=== PATIENT | female | born 1945 | race Caucasian/White ===

== ENCOUNTER 2017-03-28 10:58 | Emergency (ER) | payer OTHER ==
[~2017-03-28] VITALS: Ht 149.9 cm; Wt 67.6 kg
[2017-03-28 11:48] LABS: HEMATOCRIT 41.8 % (37.0-47.0); HEMOGLOBIN 13.9 gm/dL (12.0-15.0); MCH 29.1 pg (26.0-34.0); MCHC 33.2 g/dL (28.0-37.0); MCV 87.7 fL (80.0-100.0); RBC 4.77 mil/uL (4.20-5.00); RDW 14.6 % (10.5-14.5); WBC 3.9 thou/uL (4.0-11.0)
[2017-03-28 11:56] LABS: CALCIUM 8.9 mg/dL (8.5-10.1); CREATININE 0.9 mg/dL (0.6-1.0); POTASSIUM 3.3 mmol/L (3.5-5.1)
[2017-03-28 12:02] LABS: APTT 37.4 Seconds (24.5-32.8); INR 1.7; PROTIME 17.4 Seconds (9.3-11.4)
[2017-03-28] MEDS ORDERED: TENORMIN50 MG PO (12:28)
[2017-03-28] MEDS ORDERED: VITAMINC500 PO (12:28)
[2017-03-28] MEDS ORDERED: VENTOLIN HFA 1818 GM INH (12:28)
[2017-03-28] MEDS ORDERED: APAP500 PO (12:28)
[2017-03-28] MEDS ORDERED: MUCINEX DM ER1 EAC1 PO (12:30)
[2017-03-28] MEDS ORDERED: VASOTEC10 MG PO (12:30)
[2017-03-28] MEDS ORDERED: BENADRYL25 MG PO (12:30)
[2017-03-28] MEDS ORDERED: PREMARIN1.25 MG PO (12:30)
[2017-03-28] MEDS ORDERED: BREO ELLIPTA 21 EACH IH (12:31)
[2017-03-28] MEDS ORDERED: CLARITIN10 MG PO (12:31)
[2017-03-28] MEDS ORDERED: FOLIC ACID 40400 MCG PO (12:31)
[2017-03-28] MEDS ORDERED: METROGEL55 GM TP (12:32)
[2017-03-28] MEDS ORDERED: THERAGRAN-M PR1 EAC1 PO (12:33)
[2017-03-28] MEDS ORDERED: MINOCIN100 MG PO (12:33)
[2017-03-28] MEDS ORDERED: OMEGA-31000 M1 PO (12:34)
[2017-03-28] MEDS ORDERED: MAXZIDE-25 MG1 EACH PO (12:34)
[2017-03-28] MEDS ORDERED: OMEPRAZOLE20 M1 PO (12:34)
[2017-03-28] MEDS ORDERED: VITAMIN E100 UNI2 PO (12:35)
[2017-03-28] MEDS ORDERED: JANTOVEN2 MG PO (12:35)
[2017-03-28] MEDS ORDERED: PREDNISONE 20 M20 MG PO (13:25)
[2017-03-28] MEDS ORDERED: TRAMADOL 50 MG50 MG PO (13:25)
[2017-03-28 14:07] VITALS: BP 137/59
== END 2017-03-28 14:11 | disposition home or self-care (01) ==
LOC: ER 10:58
PROVIDERS: Emergency Medicine
DX: R51 Headache (principal); M06.9 Rheumatoid arthritis, unspecified; I10 Essential (primary) hypertension; J45.909 Unspecified asthma, uncomplicated; F10.99 Alcohol use, unspecified with unspecified alcohol-induced disorder; Z87.442 Personal history of urinary calculi; Z90.710 Acquired absence of both cervix and uterus

== ENCOUNTER → 2019-12-19 | Outpatient (CLI) | payer OTHER ==
[~2019-12-19] MED LIST: APAP500 PO; BENADRYL25 MG PO; BREO ELLIPTA 21 EACH IH; CLARITIN10 MG PO; FOLIC ACID 40400 MCG PO; JANTOVEN2 MG PO; MAXZIDE-25 MG1 EACH PO; METROGEL55 GM TP; MINOCIN100 MG PO; MUCINEX DM ER1 EAC1 PO; OMEGA-31000 M1 PO; OMEPRAZOLE20 M1 PO; PREDNISONE 20 M20 MG PO; PREMARIN1.25 MG PO; TENORMIN50 MG PO; THERAGRAN-M PR1 EAC1 PO; TRAMADOL 50 MG50 MG PO; VASOTEC10 MG PO; VENTOLIN HFA 1818 GM INH; VITAMIN E100 UNI2 PO; VITAMINC500 PO
== END ==
LOC: SJCVCIMAG 08:47
DX: R94.31 Abnormal electrocardiogram [ECG] [EKG] (principal); I08.8 Other rheumatic multiple valve diseases; I48.21 Permanent atrial fibrillation; I10 Essential (primary) hypertension; E78.5 Hyperlipidemia, unspecified; J45.40 Moderate persistent asthma, uncomplicated; C83.31 Diffuse large B-cell lymphoma, lymph nodes of head, face, and neck; Z86.73 Personal history of transient ischemic attack (TIA), and cerebral infarction without residual deficits; Z79.01 Long term (current) use of anticoagulants; Z72.89 Other problems related to lifestyle; Z79.899 Other long term (current) drug therapy

== ENCOUNTER → 2020-06-18 | Outpatient (CLI) | payer OTHER | LOC: SJCVC 13:21 | PROVIDERS: ATTEND Internal Medicine | DX: I48.21 Permanent atrial fibrillation (principal); R94.31 Abnormal electrocardiogram [ECG] [EKG]; I10 Essential (primary) hypertension; E78.5 Hyperlipidemia, unspecified; C83.31 Diffuse large B-cell lymphoma, lymph nodes of head, face, and neck; Z79.01 Long term (current) use of anticoagulants; Z79.899 Other long term (current) drug therapy ==

== ENCOUNTER → 2020-06-19 | Outpatient (CLI) | payer OTHER | LOC: SJCVCIMAG 12:41 | PROVIDERS: ATTEND Internal Medicine Cardiovascular Disease | DX: I08.3 Combined rheumatic disorders of mitral, aortic and tricuspid valves (principal); I27.20 Pulmonary hypertension, unspecified; I11.9 Hypertensive heart disease without heart failure; I48.21 Permanent atrial fibrillation; C83.31 Diffuse large B-cell lymphoma, lymph nodes of head, face, and neck; E78.5 Hyperlipidemia, unspecified ==

== ENCOUNTER 2020-10-02 12:03 | Emergency (ER) | payer OTHER ==
[~2020-10-02] VITALS: Ht 149.9 cm; Wt 50.8 kg
[2020-10-02 12:49] LABS: ABSOLUTE NEUTROPHILS 4.1 thou/uL (1.4-8.2); BASOPHILS 0.7 % (0.0-2.0); EOSINOPHILS 0.2 % (0.0-3.0); HEMATOCRIT 43.6 % (37.0-47.0); HEMOGLOBIN 14.5 gm/dL (12.0-15.0); LYMPHOCYTES 6.9 % (24.0-44.0); MCH 26.4 pg (26.0-34.0); MCHC 33.3 g/dL (28.0-37.0); MCV 79.4 fL (80.0-100.0); MONOCYTES 6.3 % (1.0-8.0); PLATELET COUNT 185 thou/uL (150-400); POLYS 85.9 % (36.0-66.0); RBC 5.49 mil/uL (4.20-5.00); RDW 19.4 % (10.5-14.5); WBC 4.8 thou/uL (4.0-11.0)
[2020-10-02 13:00] LABS: CALCIUM 9.5 mg/dL (8.5-10.1); POTASSIUM 3.9 mmol/L (3.5-5.1)
[2020-10-02 13:08] LABS: ALBUMIN 2.7 g/dL (3.4-5.0); TOTAL BILIRUBIN 0.6 mg/dL (0.2-1.0); TOTAL PROTEIN 6.7 g/dL (6.4-8.2)
[2020-10-02 14:15] LABS: ANISOCYTOSIS 1+
--- NOTE | 2020-10-02 14:24 | EKG ---
[address] [address] ELECTROCARDIOGRAM REPORT Name: VIVIANA COON [id number] Admission: 10/02/20 Attend Phys: Discharge: Date of : 41 Report #: [id number] [facility] ED Test Date: 2020-10-02 Test Time: 13:17:08 Pat Name: VIVIANA COON Department: Room: Gender: F Plush Weaver: susan : 1945 Requested By: Malik Spicer Order Number: [id number] MD: Nathen Rico Measurements Intervals [place] Rate: 94 P: [place]: QRS: 84 QRSD: 78 T: 22 QT: 351 QTc: 439 Interpretive Statements Atrial fibrillation Ventricular premature complex Borderline right axis deviation No previous ECG available for comparison Electronically Signed On 10-02-2020 14:23:53 CARTRIDGE FEEDER by Nathen Rico [email or web address] <ELECTRONICALLY SIGNED> By: Nathen Rico MD, [facility] 10/02/20 1423 1317 1317 Nathen Rico MD, FACC /EPI
[2020-10-02 14:37] LABS: URINE BILIRUBIN NEGATIVE (Negative); URINE BLOOD NEGATIVE (Negative); URINE CLARITY CLEAR; URINE COLOR YELLOW; URINE GLUCOSE-RANDOM* NEGATIVE (Negative); URINE KETONES TRACE (Negative); URINE LEUKOCYTES-REFLEX NEGATIVE (Negative); URINE NITRITE-REFLEX NEGATIVE (Negative); URINE PROTEIN (DIPSTICK) NEGATIVE (Negative); URINE SPECIFIC GRAVITY 1.015 (1.005-1.035); URINE UROBILINOGEN 0.2 E.U./dl (0.2-1.0)
[2020-10-02 15:59] VITALS: BP 126/68
== END 2020-10-02 15:59 | disposition home or self-care (01) ==
LOC: ER 12:03
PROVIDERS: Physician Assistant
DX: U07.1 COVID-19 (principal); R53.1 Weakness; I10 Essential (primary) hypertension; J45.909 Unspecified asthma, uncomplicated; Z90.710 Acquired absence of both cervix and uterus; Z79.899 Other long term (current) drug therapy; Z79.01 Long term (current) use of anticoagulants; Z79.2 Long term (current) use of antibiotics

== ENCOUNTER 2020-10-05 12:39 | Inpatient (IN) | payer OTHER ==
[~2020-10-05] VITALS: Ht 149.9 cm; Wt 46.3 kg
--- NOTE | ~2020-10-05 | EMS ---
[address] [address] EMS Patient Care Report Name: VIVIANA COON Room #: REG BRANDY Wheatley#: [id number] Admission: 10/05/20 Attend Phys: Discharge: Date of : 41 Report #: [id number] THIS REPORT FOR: //name// Report Transmitted: 10/05/2020 12:27 EMS Care Summary [id number] @ 10/05/2020 11:54 Incident Location [address] [place] [address] Patient VIVIANA COON Female, 75 Years 1945 Patient Address [address] [place] [address] Patient History Cancer, Unspecified,Cardiac Arrythmia,Hypertension (HTN),Stroke/CVA,Atrial Fibrillation, Patient Allergies No known allergies, Patient Medications Furosemide, Xarelto, Chief Complaint weakness and lethargy Disposition Transported No Lights/[place] Reason Sick Person Transported To [facility] Narrative chief complaint: 75 y/o female suffering from fatigue and weakness. family of pt states: she was diagnosed with covid on Sep.16. since then she [address] [address] EMS Patient Care Report Name: VIVIANA COON Room #: REG BRANDY Wheatley#: [id number] Admission: 10/05/20 Attend Phys: Discharge: Date of : 41 Report #: [id number] just lays around and sleeps, she is weak and lethargic. she was seen at hospital but discharged. she still hasn't gotten any better. hx of htn, cancer, a-fib. we called her pcp and he wants her admitted to the hospital. she goes to [facility] pt states she feels cold and tired. pt denies: cp,sob,n/v/d,pain aos found pt laying supine in chair with abcs intact. received report and complaint from pt and pts family. pts vitals and loc were assessed. pt was able to stand and pivot to stretcher with assistance. pt was connected to traffic monitor specialist. iv access was established in pts left forearm with 20g iv connected to 1L bag of LR flowing kvo. pt was placed on o2 at 2 lpm via nc. report was given to receiving facility prior to arrival. en route, pts vitals and loc were monitored with no significant changes. at destination, pt was wheeled into assigned room on stretcher. pt was transferred to bed via sheet drag maneuver. gave report to receiving rn. transferred care without complication and went back into service. Initial Vitals @12:18 @12:09P: 71,SpO2: 80, @12:09P: 102,R: 18,BP: 129/101,Pain: 0/10,GCS: 15,Temp: 103.1F,Glucose: 116,SpO2: 88,Revised Trauma: 12, @12:34P: 95,R: 14,BP: 132/101,GCS: 15,EtCO2: 21,SpO2: 95,Revised Trauma: 12, @12:16R: 16,Pain: 0/10,GCS: 15,EtCO2: 22,SpO2: 94, Assessments @12:25MENTAL:Person Oriented,Time Oriented,Event Oriented,Place Oriented,SKIN:Hot,HEENT:Head/Face: No Abnormalities,Neck/Airway: No Abnormalities,LUNG SOUNDS:General: No Abnormalities,ABDOMEN:General: No Abnormalities,PELVIS//GI:No Abnormalities,EXTREMITIES:Right Leg: Weakness,Left Leg: Weakness,Left Arm: Weakness,Right Arm: Weakness,PULSE:NEURO:No Abnormalities, Impression Infectious Disease Procedures @12:25ALS AssessmentResponse: UnchangedSucceeded@12:28Lactated Ringers 100cc (20 ga) Site: Forearm-LeftResponse: UnchangedSucceeded@12:283-Lead ECGResponse: UnchangedSucceeded@12:13Oxygen FlowRate: 2 Device: CO2 Nasal Cannula Response: [facility] [address] [place] [address] EMS Patient Care Report Name: VIVIANA COON Room #: REG Corry#: [id number] Admission: 10/05/20 Attend Phys: Discharge: Date of : 41 Report #: [id number] UnchangedSucceeded@12:1812-Lead ECG Timeline 11:52,Call Received 11:52,Psap Call 11:54,Dispatched 11:56,En Route 12:00,Initial Responder On Scene 12:00,On Scene 12:03,At Patient 12:09,BP: 129/101 M,PULSE: 102,RR: 18 R,SPO2: 88 Ox,ETCO2: ,B,PAIN: 0,GCS: 15, 12:09,BP: / M,PULSE: 71,RR: R,SPO2: 80 Ox,ETCO2: ,BG: ,PAIN: ,GCS: , 12:13,Oxygen FlowRate: 2 Device: CO2 Nasal Cannula Response: UnchangedSucceeded, 12:16,BP: / M,PULSE: ,RR: 16 R,SPO2: 94 Ox,ETCO2: 22 ,BG: ,PAIN: 0,GCS: 15, 12:17,Depart Scene 12:18,12-Lead ECG, 12:18,BP: / M,PULSE: ,RR: R,SPO2: Ox,ETCO2: ,BG: ,PAIN: ,GCS: , 12:25,ALS Assessment,Response: UnchangedSucceeded, 12:28,Lactated Ringers 100cc 20 ga Site: Forearm-Left,Response: UnchangedSucceeded, 12:28,3-Lead ECG,Response: UnchangedSucceeded, 12:34,BP: 132/101 M,PULSE: 95,RR: 14 R,SPO2: 95 Ox,ETCO2: 21 ,BG: ,PAIN: ,GCS: 15, 12:35,At Destination 12:52,Call Closed Disclaimer v1.1 Copyright 2020 [employer] This EMS Care Summary contains data elements from the applicable legal record (which may be displayed differently). It is designed to provide pertinent information for the following purposes: continuity of care, clinical quality, and state data reporting. The complete legal record is available to ED staff and administrators of the receiving hospital in [employer]'s Patient Tracker. All data is provided "as is."
[2020-10-05 12:40] VITALS: BP 107/51
[2020-10-05 13:22] LABS: ABSOLUTE NEUTROPHILS 4.2 thou/uL (1.4-8.2); BASOPHILS 0.9 % (0.0-2.0); EOSINOPHILS 0.1 % (0.0-3.0); HEMATOCRIT 44.5 % (37.0-47.0); HEMOGLOBIN 14.8 gm/dL (12.0-15.0); MCH 26.4 pg (26.0-34.0); MCHC 33.2 g/dL (28.0-37.0); MCV 79.4 fL (80.0-100.0); MONOCYTES 5.3 % (1.0-8.0); PLATELET COUNT 159 thou/uL (150-400); POLYS 87.7 % (36.0-66.0); RDW 19.5 % (10.5-14.5); WBC 4.8 thou/uL (4.0-11.0)
--- NOTE | 2020-10-05 13:29 | NUR ---
RT AT BEDSIDE TO OBTAIN ABG
[2020-10-05 13:47] LABS: ANISOCYTOSIS 1+; OVALOCYTES FEW
[2020-10-05 14:09] LABS: ANION GAP 15 mmol/L (7-16); BUN 36 mg/dL (7-18); CALCIUM 9.1 mg/dL (8.5-10.1); CHLORIDE 98 mmol/L (98-107); CO2 24 mmol/L (21-32); GLUCOSE 97 mg/dL (74-106); SODIUM 137 mmol/L (136-145)
[2020-10-05 14:17] LABS: TROPONIN-I <0.06 ng/mL (<0.06)
[2020-10-05 14:37] LABS: URINE BILIRUBIN NEGATIVE (Negative); URINE BLOOD NEGATIVE (Negative); URINE CLARITY SL HAZY; URINE COLOR YELLOW; URINE GLUCOSE-RANDOM* NEGATIVE (Negative); URINE KETONES 1+ (Negative); URINE LEUKOCYTES-REFLEX NEGATIVE (Negative); URINE NITRITE-REFLEX NEGATIVE (Negative); URINE PROTEIN (DIPSTICK) NEGATIVE (Negative); URINE SPECIFIC GRAVITY 1.015 (1.005-1.035); URINE UROBILINOGEN 0.2 E.U./dl (0.2-1.0)
[2020-10-05 15:35] VITALS: BP 136/58
[2020-10-05 15:36] VITALS: BP 136/58
[2020-10-05 16:00] VITALS: BP 106/61
[2020-10-05 16:38] VITALS: BP 127/74
--- NOTE | 2020-10-05 17:48 | NUR ---
PT ADMITTED FROM ER ABOUT 1630PM FOR POSITIVE COVID AND FEVER AND WEAKNESS, PT IS AoX2 ( PERSON AND PLACE ), PT CAN FOLLOW COMMANDS, PT IS CONFUSED AT TIME, PT HAS STARTED IV ABX AND IV FLUID , PT IS ON ROOM AIR , PT'S VS ARE STABLE BY THIS TIME.
[2020-10-05 20:55] VITALS: BP 106/63
[2020-10-06 04:41] LABS: HEMATOCRIT 38.6 % (37.0-47.0); MCH 26.6 pg (26.0-34.0); MCV 80.5 fL (80.0-100.0); RBC 4.79 mil/uL (4.20-5.00)
[2020-10-06 04:51] LABS: HEMOGLOBIN 12.7 gm/dL (12.0-15.0); INR 1.1; PROTIME 10.8 Seconds (9.3-11.4)
[2020-10-06 04:52] LABS: WBC 1.8 thou/uL (4.0-11.0)
[2020-10-06 04:56] LABS: CALCIUM 8.5 mg/dL (8.5-10.1); CREATININE 0.9 mg/dL (0.6-1.0); MAGNESIUM 2.1 mg/dL (1.8-2.4); POTASSIUM 4.4 mmol/L (3.5-5.1)
[2020-10-06 05:00] VITALS: BP 119/78
--- NOTE | 2020-10-06 05:41 | NUR ---
LAB CALLED WITH CRITICAL WBC OF 1.8. ALL PROTOCOLS FOLLOWED.
--- NOTE | 2020-10-06 07:44 | EKG ---
[address] [place] [address] ELECTROCARDIOGRAM REPORT Name: VIVIANA COON Room #: 356-P ADM IN M.R.#: [id number] Admission: 10/05/20 Attend Phys: Moose Wesley MD Discharge: Date of : 41 Report #: [id number] [facility] ED Test Date: 2020-10-05 Test Time: 13:43:10 Pat Name: VIVIANA COON Department: Room: 356 Gender: F Job Estimator: kf : 1945 Requested By: Karlos Sinclair Order Number: [id number] MD: Nathen Rico Measurements Intervals [place] Rate: 97 P: [place]: QRS: 88 QRSD: 76 T: 57 QT: 335 QTc: 426 Interpretive Statements Atrial fibrillation Borderline right axis deviation Compared to ECG 10/02/2020 13:17:08 Ventricular premature complex(es) no longer present Electronically Signed On 10-06-2020 7:44:34 SHIP FASTENER by Nathen Rico [email or web address] <ELECTRONICALLY SIGNED> By: Nathen Rico MD, [facility] 10/06/20 0744 1343 1343 Nathen Rico MD, FACC /EPI
[2020-10-06 07:53] VITALS: BP 129/68
[2020-10-06 11:31] VITALS: BP 106/58
--- NOTE | 2020-10-06 11:40 | NUR ---
PT ALERT AND ORIENTED TIMES THREE WITH PERIODS OF CONFUSION. VSS, IVF INFUSING PER ORDER. PT DENIES PAIN/SOA. PT TOLERATES MEDS AND MEALS. PT WORKED WELL WITH PT/OT. WILL CONTINUE TO MONITOR.
[2020-10-06 15:28] VITALS: BP 119/67
--- NOTE | 2020-10-06 16:21 | NUR ---
INITIAL ASSESSMENT: IHSAN reviewed chart and spoke with nursing and attending physician. Pt was admitted from home due to COVID-19. Pt had first positive COVID test on 09/16. Pt is in Enhanced Isolation. Pt is afebrile and not requiring O2. Pt is on IV abx and IV steroids. Pt is on IV abx and IV steroids. ID consulted. IHSAN placed call to pt's room. No answer. Left voice message on pt's cell phone. IHSAN spoke with pt's dtr, Jeannie, via phone. Introduced role of IHSAN. Pt normally lives at home alone. Pt has a house in [place] and in [place]. Pt lives in a one-level home. 2 steps to enter. No steps inside. Prior to admission, pt was independent with ADLs. Pt does have a walker if needed. No hx of services or post-acute placement. Pt's PCP is Dr. Roscoe Paez. IHSAN discussed options for SNF placement. Pt's dtr requests referral to [facility] due to location to pt's children who live in [facility]. IHSAN faxed referral to [facility] and notified admissions liaison of new referral. IHSAN is following to assist as needed with discharge planning.
[2020-10-06 20:01] VITALS: BP 118/75
[2020-10-07 03:57] VITALS: BP 125/78
[2020-10-07 05:09] LABS: ABSOLUTE NEUTROPHILS 5.4 thou/uL (1.4-8.2); BASOPHILS 0.1 % (0.0-2.0); HEMATOCRIT 36.8 % (37.0-47.0); HEMOGLOBIN 12.1 gm/dL (12.0-15.0); LYMPHOCYTES 3.1 % (24.0-44.0); MCH 26.5 pg (26.0-34.0); MCHC 32.8 g/dL (28.0-37.0); MCV 80.9 fL (80.0-100.0); MONOCYTES 5.8 % (1.0-8.0); PLATELET COUNT 140 thou/uL (150-400); RBC 4.55 mil/uL (4.20-5.00); RDW 19.8 % (10.5-14.5); WBC 5.9 thou/uL (4.0-11.0)
[2020-10-07 05:26] LABS: ALBUMIN 1.9 g/dL (3.4-5.0); CALCIUM 7.9 mg/dL (8.5-10.1); CREATININE 0.6 mg/dL (0.6-1.0); POTASSIUM 3.7 mmol/L (3.5-5.1); TOTAL BILIRUBIN 0.4 mg/dL (0.2-1.0)
[2020-10-07 05:34] LABS: TOTAL PROTEIN 5.1 g/dL (6.4-8.2)
[2020-10-07 05:55] LABS: FIBRINOGEN 339.7 mg/dL (210-360); PROTIME 10.5 Seconds (9.3-11.4)
--- NOTE | 2020-10-07 06:25 | NUR ---
Pt. slept fair during the night. Cont. on enhanced precaution ,afebrile. Tolerating room air well. She did report shortness of breath with exertion. MRSA , Flu A&B and Urine sample sent to lab.Cont. on enhanced precaution , afebrile. Bed alarm on. Up with assist to commode.
[2020-10-07 07:34] VITALS: BP 122/69
--- NOTE | 2020-10-07 11:05 | NUR ---
IHSAN reviewed chart and spoke with nursing and attending physician. Pt remains in Enhanced Isolation due to COVID-19. Pt is afebrile and not requiring O2. Pt is on IV abx and IV steroids. Pt is completing course of Ivermectin. Pt may be ready for discharge to SNF in 1-2 days. IHSAN contacted Marge in admissions at [facility] to follow up on referral from yesterday. Awaiting input from their clinical team and checking bed availability. IHSAN is following to assist as needed with discharge planning.
[2020-10-07 11:33] VITALS: BP 121/73
[2020-10-07 15:31] VITALS: BP 127/65
--- NOTE | 2020-10-07 18:23 | NUR ---
ASSUMED PATIENT CARE AT 0700. A/0 X4. LOSTED APPETITE. NO SOB. SOLWLY TOWARDS TO POC GOALS.
[2020-10-07 20:52] VITALS: BP 126/81
[2020-10-08 03:33] VITALS: BP 134/67
--- NOTE | 2020-10-08 04:55 | NUR ---
PT MAKING SLOW PROGRESS TOWARDS GOALS. NOTED LUNGS DIMINISHED THROUGHOUT AND FAINT CRACKLES NOTED OVER LEFT LOWER LOBE. HAS DENIED ANY SOA WHILE AT REST.
[2020-10-08 07:26] VITALS: BP 144/88
--- NOTE | 2020-10-08 10:27 | NUR ---
ASSUMED PATIENT CARE AT 0700. A/O X4. MORNING ON BED. GENERLIZED WEAKNESS. DENIES PAIN. INCONTINUE URINE AND BM. BLOOD TINGED UNRINE ON PAD. NOTIFIED DR KELLEY. WILL KEEP MONITOR.
[2020-10-08 11:13] VITALS: BP 125/76
--- NOTE | 2020-10-08 13:32 | NUR ---
IHSAN reviewed chart and spoke with nursing and attending physician. Pt remains in Enhanced Isolation due to COVID-19. Pt is afebrile and not requiring O2. Pt is on IV abx and IV steroids. Pt is completing course of Ivermectin. Pt is not ready for discharge to SNF today. IHSAN updated Marge at [facility]. IHSAN received call from pt's dtr, Melody, regarding discharge plan. Pt's dtr states that she contacted [facility], who said they have bed availability for pt. IHSAN spoke with Roseann in admissions at [facility], who states that they are not accepting COVID positive pts. SW explained that pt's first positive test was on 09/16. Pt's PCP is their certified court/medical interpreter and they will review referral to see if they are able to accept pt. IHSAN faxed referral for review. IHSAN left voice message for pt's dtr to provide update. IHSAN also notified pt's dtr that [facility] is accepting COVID positive pts and pt's PCP is their certified court/medical interpreter. IHSAN is following to assist as needed with discharge planning.
[2020-10-08 15:32] VITALS: BP 152/92
[2020-10-08 19:59] VITALS: BP 136/71
[2020-10-09 03:30] VITALS: BP 145/69
[2020-10-09 07:35] VITALS: BP 135/71
[2020-10-09 10:24] LABS: CALCIUM 8.7 mg/dL (8.5-10.1); CREATININE 0.7 mg/dL (0.6-1.0)
[2020-10-09 11:31] VITALS: BP 125/71
--- NOTE | 2020-10-09 12:29 | NUR ---
IHSAN reviewed chart and spoke with nursing and attending physician. Pt remains in Enhanced Isolation due to COVID-19. Pt is afebrile and not requiring O2. Pt is on IV abx and IV steroids. IHSAN spoke with Roseann at [facility], who states they are able to accept pt to their skilled unit, but they will not have a bed available until 10/16. However, if they have a bed become available earlier, they would be able to accept pt. They would also be willing to accept pt in transfer if pt goes to another SNF until [facility] has a bed available. Pt has not been eating and has refused to work with therapy today. IHSAN placed call to pt's room. No answer. IHSAN spoke with pt's dtr, Jeannie, via phone to provide update. Jeannie states that their preference is [facility]. Jeannie is agreeable with referral to [facility] for review if needed. Unsure of discharge timeframe. IHSAN faxed referral to [facility] for review and notified [facility] in admissions. IHSAN updated Marge at [facility], that family has chosen alternate SNFs for review. IHSAN is following to assist as needed with discharge planning.
[2020-10-09 15:16] VITALS: BP 126/74
[2020-10-09 18:57] VITALS: BP 127/69
--- NOTE | 2020-10-10 02:16 | NUR ---
ASSESSED AT START OF SHIFT. PT RESTING IN BED. EVENING MEDS GIVEN ONE AT A TIME WITH JEILIAO. PT INCONTINENT OF URINE. PERINEAL CARE PROVIDED AND CREAM APPLIED ON BUTTOCK. PO FLUID PROVIDED. PT REPOSITIONED FOR COMFORT. IV INTACT AND SL. PT ON RA SATS 97%. FALL PREC IN PLACE AND WILL CONT TO MONITOR
[2020-10-10 03:28] VITALS: BP 132/81
[2020-10-10 08:00] VITALS: BP 140/92
[2020-10-10 13:08] VITALS: BP 121/69
[2020-10-10 16:30] VITALS: BP 118/70
--- NOTE | 2020-10-10 16:42 | NUR ---
RN ASSUMED PT'S CARE AT 0700AM, PT IS A&OX2 ( PERSON AND PLACE ), PT IS ON ROOM AIR , PT'S VS ARE STABLE, BUT PT STILL EATS POOR, PT IS CONTINUING IV ABX, PT DENIES PAIN AND SOB BY THIS TIME.
[2020-10-10 21:15] VITALS: BP 115/74
[2020-10-11 04:35] VITALS: BP 136/80
--- NOTE | 2020-10-11 06:52 | NUR ---
PATIENTS CARE WAS ASSUMED AT SHIFT CHANGE. PATIENT WAS ASSESSED AND MEDS WAS PASSED. PATIENT CONTINUES TO SHOW AN A-FIB BASE LINE. SPENCER CARE DONE DUE TO REDNESS. PLAN IS TO D/C THIS PATIENT TUESDAY.
[2020-10-11 07:40] VITALS: BP 137/84
[2020-10-11 09:32] VITALS: BP 116/63
[2020-10-11 10:05] LABS: HEMATOCRIT 34.5 % (37.0-47.0); HEMOGLOBIN 11.3 gm/dL (12.0-15.0); MCH 26.4 pg (26.0-34.0); MCHC 32.8 g/dL (28.0-37.0); MCV 80.6 fL (80.0-100.0); RBC 4.28 mil/uL (4.20-5.00); RDW 20.1 % (10.5-14.5); WBC 8.4 thou/uL (4.0-11.0)
[2020-10-11 10:28] LABS: CREATININE 0.8 mg/dL (0.6-1.0); POTASSIUM 3.3 mmol/L (3.5-5.1)
--- NOTE | 2020-10-11 10:58 | NUR ---
Calorie count started 10/09. Pt refused all meals on 10/09. 10/10- less than 300 calories consumed. 10/11-has refused breakfast so far. Changed oral supplement flavors since pt dislikes chocolate. Continue to encourage intake. Will follow up again on Tuesday
[2020-10-11 11:41] VITALS: BP 124/79
[2020-10-11 15:34] VITALS: BP 137/70
--- NOTE | 2020-10-11 17:04 | NUR ---
RN ASSUMED PT'CARE AT 0700AM, PT KNOWS HER NAME AND DAY, PT IS CONFUSED AT TIME,RN HAS REPORTED TO DR , PT HAS FEVER AND PT REFUSED BREAKFAST, PT IS CONTINUING IV ABX, BUT PT STILL IS WEAK, PT DOES NOT HAVE SOB BY THIS TIME.
[2020-10-11 19:58] VITALS: BP 123/82
[2020-10-12 02:46] VITALS: BP 124/67
--- NOTE | 2020-10-12 04:25 | NUR ---
Pt. slept well most of the night. Tolerating room air well with no respiratory distress. Cont. on enhanced precaution , afebrile. A fib with controlled rate. Incontinent of bladder. Protective cream to buttocks after incontinence.
[2020-10-12 11:38] VITALS: BP 113/79
[2020-10-12 21:20] VITALS: BP 135/84
--- NOTE | 2020-10-13 04:27 | NUR ---
Pt. slept well during the night.Repositioned prn for comfort. Cont. on enhanced precaution , afebrile. Tolerating room air well with O2 sat in the upper 90's to 100%.Incontinent of bladder and bm. Z goard applied to buttocks and periarea
[2020-10-13 05:27] VITALS: BP 126/61
[2020-10-13 07:41] VITALS: BP 130/82
--- NOTE | 2020-10-13 11:05 | NUR ---
WOUND CONSULT; THE PATIENT IS MILDLY CONFUSED BUT WILL ANSWER QUESTIONS WELL CAN TURN HERSELF WITH SOME ASSISTANCE. THE IDANIA SCORE IS 12 AND ALBUMIN IS 1.9. BLANCHABLE ERYTHEMA WAS NOTED ON THE SACRUM. RECOMMENDATIONS; 1-ZGUARD TO THE SACRUM TID 2-TURN Q2H 3-ADD A LOW AIRLOSS PUMP DISCUSSED WITH RN
--- NOTE | 2020-10-13 12:13 | NUR ---
PT CARE ASSUMED AT 0700. A&Ox4. FLAT AFFECT AND SLOW TO ANSWER QUESTIONS. CANNOT FINISH WHAT SHE WANTS TO TELL YOU IF SHE LOOSES HER WORDS. SACRUM RED ZGUARD APPLIED. WOUNDCARE CONSULTED. ORDERS FOR Q2 TURNS. LOW AIRLOSS PUMP APPLIED. SPUTUM SAMPLE SENT TO LAB. TEMP OF 100.4. IV PATENT WITH NO REDNESS OR EDEMA, SALINE LOCKED. ANTIBIOTICS GIVEN. FALL PROTOCOL IN PLACE. CALL LIGHT IN REACH. WILL CONTINUE TO MONITOR.
--- NOTE | 2020-10-13 12:57 | NUR ---
IHSAN reviewed chart and spoke with nursing and attending physician. Pt remains in Enhanced Isolation due to COVID-19. Pt is febrile today. Not requiring O2. Pt has been refusing to eat. Palliative care consult ordered to discuss goals of care with pt/family. [facility] does not have any beds available at this time. IHSAN left voice message for the admissions dept at [facility]. IHSAN is following to assist as needed with discharge planning.
[2020-10-13 15:30] VITALS: BP 132/81
[2020-10-13 19:43] VITALS: BP 105/69
[2020-10-14 03:18] VITALS: BP 116/63
--- NOTE | 2020-10-14 05:34 | NUR ---
Pt. slept well during the night. Repositined prn. Incontinent of bladder and bowel. Z guard applied to her buttocks after each incontinence. Tolerating room air well. Cont. on enhanced precaution ,afebrile.
[2020-10-14 05:49] LABS: HEMATOCRIT 37.3 % (37.0-47.0); HEMOGLOBIN 12.3 gm/dL (12.0-15.0); MCH 26.3 pg (26.0-34.0); MCHC 32.9 g/dL (28.0-37.0); MCV 79.8 fL (80.0-100.0); RBC 4.68 mil/uL (4.20-5.00); RDW 19.8 % (10.5-14.5); WBC 9.5 thou/uL (4.0-11.0)
[2020-10-14 06:19] LABS: CALCIUM 9.2 mg/dL (8.5-10.1); CREATININE 0.6 mg/dL (0.6-1.0); POTASSIUM 4.9 mmol/L (3.5-5.1)
[2020-10-14 07:49] VITALS: BP 117/64
[2020-10-14 15:24] VITALS: BP 107/61
--- NOTE | 2020-10-14 15:58 | NUR ---
IHSAN reviewed chart and spoke with nursing and attending physician. Pt remains in Enhanced Isolation due to COVID-19. Pt had low grade fever and is on IV abx. Pt not requiring O2. Palliative care physician met with pt yesterday. Pt does not want a peg tube. Per nursing, pt is not eating. Pt did participate with PT/OT today. IHSAN left voice message for Roseann in admissions at [facility] to check bed availability. IHSAN spoke with pt's dtr, Jenanie, via phone to discuss discharge plan. Pt's dtr states that SNF is the plan at this time. [facility] is the preference. Pt's dtr asked when pt can come out of isolation and had questions about plan of care. IHSAN provided contact info to attending physician to speak with pt's dtr. IHSAN is following to assist as needed with discharge planning.
[2020-10-14 19:14] VITALS: BP 114/66
--- NOTE | 2020-10-14 23:56 | NUR ---
PT ASLEEP IN BED EASILY AROUSED FOR ASSESSMENT. LUNGS WITH WHEEZES. FLAT AFFECT. PT REFUSED VIT C STATING IT UPSETS HER STOMACH. PT PROVIDED APPLESAUCE AND ASKED STAFF TO OPEN IT BUT PT DID NOT EAT IT. PT INCONTINENT OF LOOSE STOOL X 1. BARRIER CREAM APPLIED TO COCCYX. PT REPOSITIONS SELF IN BED. BED ALARM ON.
[2020-10-15 03:13] VITALS: BP 128/66
--- NOTE | 2020-10-15 06:01 | NUR ---
PT REFUSING MEDS, REPORTING THEY UPSET HER STOMACH. PT STATED SHE IS NOT EATING BECAUSE SHE IS CHOKING ON SPUTUM. PT HAS NOT BEEN OBSERVED TO BE COUGHING.
[2020-10-15 07:29] VITALS: BP 115/38
--- NOTE | 2020-10-15 15:09 | NUR ---
IHSAN reviewed chart and spoke with nursing and attending physician. Pt remains in Enhanced Isolation due to COVID-19. Pt is afebrile and not requiring O2. Pt is on IV abx. Plan is for pt to discharge to post-acute care. IHSAN spoke with Roseann in admissions at [facility], who states they are able to accept pt tomorrow. IHSAN spoke with pt's dtr, Jeannie, via phone. Lengthy discussion regarding discharge plan and eventual discharge planning. Pt's dtr states she is aware that if pt does not progress with therapy, she may need fdc care placement or hospice. planner/scheduler to fax clinical/therapy updates to [facility] for review. IHSAN is following to assist as needed with discharge planning.
[2020-10-15 15:26] VITALS: BP 124/74
--- NOTE | 2020-10-15 16:41 | NUR ---
FAXED REFERRAL TO [facility] SPOKE WITH PANTERA IN ADM SHE RECEIVED REFERRAL AND WILL REVIEW. DP TO FOLLOW.
--- NOTE | 2020-10-15 18:03 | NUR ---
RN ASUMED PT'S CARE AT 0700AM, PT IS A&OX2 ( PERSON AND PLACE ), PT IS CONFUSED AT TIME, RN HAS NOTIFIED DR AND PT'S DAUGHTER ABOUT PT'S REFUSTION MEDICATIONS, POOR EATING, PT STILL IS WAEK ,PT NEEDS TO HELP ADL.
[2020-10-15 19:49] VITALS: BP 121/67
[2020-10-16 04:45] VITALS: BP 130/69
--- NOTE | 2020-10-16 06:47 | NUR ---
PT IS REFUSING ALL ORAL MEDICATIONS. ONLY REQUEST FROM PT IS ENSURE TO DRINK OR ANA SODA. PT NOT PROGRESSING TOWARDS DC GOALS. CALL LIGHT WITHIN REACH.
[2020-10-16 06:48] LABS: HEMATOCRIT 36.4 % (37.0-47.0); MCH 26.3 pg (26.0-34.0); MCHC 32.9 g/dL (28.0-37.0); RBC 4.55 mil/uL (4.20-5.00); RDW 20.1 % (10.5-14.5); WBC 7.2 thou/uL (4.0-11.0)
[2020-10-16 07:01] LABS: CALCIUM 8.9 mg/dL (8.5-10.1); CREATININE 0.5 mg/dL (0.6-1.0); POTASSIUM 4.4 mmol/L (3.5-5.1)
[2020-10-16 08:08] VITALS: BP 136/73
--- NOTE | 2020-10-16 13:58 | NUR ---
IHSAN reviewed chart and spoke with nursing and attending physician. Pt remains in Enhanced Isolation due to COVID-19. Pt is afebrile and not requiring O2. Pt is on IV abx. Pt is progressing towards goals for discharge to SNF. IHSAN spoke with Roseann in admissions at [facility], who states they can accept pt, but they do not anticipate having a bed for pt today. Their scheduled discharges for today are not happening. Roseann to follow up with IHSAN regarding bed availability over the weekend. IHSAN is following to assist as needed with discharge planning.
--- NOTE | 2020-10-16 15:34 | NUR ---
SPOKE WITH [facility] IN ADM AT [facility] HAVE A BED AVAILABLE IF PT DISCHARGES OVER THE WEEKEND. FAX DC ORDERS/SUMMARY TO [facility]: AND CALL TO SET UP TRANSPORT [phone] ASK FOR ADMISSIONS AND AND HAVE THEM CONNECT YOU TO GIVE REPORT.
[2020-10-16 16:10] VITALS: BP 106/58
[2020-10-16 19:32] VITALS: BP 110/52
[2020-10-17 04:05] VITALS: BP 115/71
--- NOTE | 2020-10-17 04:26 | NUR ---
continues on room air. she like to be helped with turns, just a pillow behind her back. she is resting quietly. external catheter is working fine. refused her po lianneiamin cici best and her nystatin po.
[2020-10-17 05:55] LABS: HEMATOCRIT 36.6 % (37.0-47.0); HEMOGLOBIN 11.9 gm/dL (12.0-15.0); MCH 25.9 pg (26.0-34.0); MCHC 32.6 g/dL (28.0-37.0); MCV 79.5 fL (80.0-100.0); RBC 4.6 mil/uL (4.20-5.00); RDW 19.7 % (10.5-14.5); WBC 6.8 thou/uL (4.0-11.0)
[2020-10-17 06:04] LABS: CALCIUM 8.7 mg/dL (8.5-10.1); CREATININE 0.5 mg/dL (0.6-1.0); POTASSIUM 3.7 mmol/L (3.5-5.1)
[2020-10-17 07:33] VITALS: BP 105/71
[2020-10-17] MEDS ORDERED: NYSTATIN100000 UNI PO (14:24)
[2020-10-17] MEDS ORDERED: XARELTO15 MG PO (14:24)
[2020-10-17] MEDS ORDERED: PREDNISONE 10 M10 M1 PO (14:25)
[2020-10-17 15:25] VITALS: BP 101/61
--- NOTE | 2020-10-17 18:32 | NUR ---
FAXED DC ORDER TO [phone]. NERI CALLED BACK THAT THEY DONT HAVE BED FOE HER. WILL KEEP MONITOR.
[2020-10-17 20:27] VITALS: BP 97/58
[2020-10-18 05:42] VITALS: BP 100/57
--- NOTE | 2020-10-18 06:24 | NUR ---
PT MAKING SLOW PROGRESS TOWARDS GOALS. ON ROOM AIR THROUGOUT THE NIGHT WITH O2 SAT 94-95%. DENIED ANY SOA. PT REFUSED ALL MEDICATIONS (NYSTATIN, PREDNISON, VITAMIN c). ONLY EXPLANATION GIVEN BY PT WAS "I'M TIRED OF TAKING PILLS."
[2020-10-18 07:34] VITALS: BP 129/80
--- NOTE | 2020-10-18 10:30 | NUR ---
PLACED A CALL TO [facility] TO ARRANGE D/C TODAY. UNABLE TO REACH JOSIE...
[2020-10-18 15:31] VITALS: BP 115/70
--- NOTE | 2020-10-18 16:30 | NUR ---
AFTER MULTIPLE CALLS TO FACILITY PANTERA REPORTED THAT A BED WAS NOT AVAILABLE A RESIDENT DID NOT DISCHARGE THAT HAD PLANNED TO. HOPEFULLY TUESDAY A RESIDENT WILL DISCHARGE AND THIS PATIENT CAN TX TO [facility]. DAUGHTER DANIEL AND PATIENT VIVIANA NOTIFIED OF DELAY. DR ROSARIO ALSO NOTIFIED.
--- NOTE | 2020-10-18 18:48 | NUR ---
PLAN TO CALL PANTERA @ [facility] TOMORROW @ [phone].
[2020-10-18 18:57] VITALS: BP 122/101
--- NOTE | 2020-10-19 03:45 | NUR ---
zeeshan on room air. talking with nurse estephania at bedtime. she has refused to take he nystatin liquid. sated that she does not need this. aware of up coming transfer [facility] [place] [facility].
[2020-10-19 04:04] VITALS: BP 112/57
[2020-10-19 08:27] VITALS: BP 119/80
[2020-10-19 09:16] VITALS: BP 119/80
== END 2020-10-19 16:00 | DRG 177 ==
LOC: ER 12:39 → 3W 15:16 → EROBS 15:16 → 3W 16:07
PROVIDERS: Emergency Medicine; Hospitalist; Specialist; ADMIT Internal Medicine; ATTEND Internal Medicine
DX: U07.1 COVID-19 (principal); J12.82 Pneumonia due to coronavirus disease 2019; C85.90 Non-Hodgkin lymphoma, unspecified, unspecified site; I48.20 Chronic atrial fibrillation, unspecified; K21.9 Gastro-esophageal reflux disease without esophagitis; D72.819 Decreased white blood cell count, unspecified; I10 Essential (primary) hypertension; J45.909 Unspecified asthma, uncomplicated; R53.81 Other malaise; E87.6 Hypokalemia; M06.9 Rheumatoid arthritis, unspecified; Z79.899 Other long term (current) drug therapy; Z90.710 Acquired absence of both cervix and uterus
CPT/HCPCS: 10779; 10879